=== PATIENT | female | born 1970 | race American Indian/Alaskan Native ===

== ENCOUNTER 2021-04-26 13:08 | Emergency (ER) | payer OTHER ==
[2021-04-26 13:55] VITALS: BP 152/90
--- NOTE | 2021-04-26 14:36 | Emergency Department Report ---
ED General Adult HPI - General Chief complaint: Adult Asthma Stated complaint: SOB Time Seen by Provider: 04/26/21 14:12 Source: patient Mode of arrival: Ambulatory Limitations: No Limitations - History of Present Illness Initial comments: 50 year old female with pmhx of HTN and "chronic bronchitis" (she states she has never been dx with asthma or COPD) presents to ED with complaints of SOB. Patient states that around labor day she started having issues with her allergies and then 2 days later she developed as well as loss of smell and a productive cough. She states that she went and got a COVID-19 test and it was positive. She states that she called her primary care doctor who called her in a prescription for Tessalon Perles for the cough. She states that recently she has been increased shortness of breath mainly when she lays down she is also having increased wheezing and increased chest tightness. She states that she does have a albuterol MDI which she has been using as needed with some relief of her symptoms. She denies any lower extremity swelling. She states that she has never been admitted for her chronic bronchitis. MD Complaint: SOB/+COVID -: Gradual, days(s) Severity scale (0 -10): 0 - Related Data Previous Rx's Medication Instructions Recorded Last Taken Type Azithromycin [Zithromax Z-JENNIFER] 250 mg PO DAILY #1 pack 04/26/21 Unknown Rx predniSONE [Deltasone] 40 mg PO QDAY #10 tab 04/26/21 Unknown Rx Allergies Allergy/AdvReac Type Severity Reaction Status Date / Time No Known Allergies Allergy Unverified 04/26/21 13:51 ED Review of Systems ROS: Stated complaint: SOB Other details as noted in HPI ED Past Medical Hx - Past Medical History Previous Medical History?: Yes Hx Hypertension: Yes Hx Asthma: Yes - Medications Home Medications: Home Medications Medication Instructions Recorded Confirmed Last Taken Type Azithromycin [Zithromax Z-JENNIFER] 250 mg PO DAILY #1 pack 04/26/21 Unknown Rx predniSONE [Deltasone] 40 mg PO QDAY #10 tab 04/26/21 Unknown Rx ED Physical Exam - General Limitations: No Limitations ED Course Vital Signs 04/26/21 04/26/21 13:50 13:54 Temperature 98.4 F 97.8 F Pulse Rate 83 80 Respiratory 16 18 Rate Blood Pressure 152/94 Blood Pressure 152/90 [Left] O2 Sat by Pulse 97 97 Oximetry ED Medical Decision Making - Lab Data Result diagrams: 04/26/21 16:43 04/26/21 16:43 - EKG Data -: EKG Interpreted by [place] EKG shows normal: sinus rhythm Rate: bradycardia (58) - EKG Data Interpretation: normal EKG - Radiology Data Radiology results: report reviewed Transcribed By: KLARISSA Dictated By: Keith Jalloh MD Electronically Authenticated By: Keith Jalloh MD Signed Date/Time: 04/26/211732 Patient: RAMOS TOMPKINS MR#: [id number] : 1970 Acct:[id number] Age/Sex: 50 / F ADM Date: 04/26/21 Loc: ED Attending Dr: Ordering Physician: SAMMIE QUINONES Date of Service: 04/26/21 Procedure(s): XR chest routine 2V Accession Number(s): [id number] cc: SAMMIE QUINONES Fluoro Time In Minutes: CHEST 2 VIEWS INDICATION: SOB/cough/+covid. COMPARISON: None FINDINGS: SUPPORT DEVICES: None. HEART: Within normal limits. LUNGS/PLEURA: Considerable elevation of the right hemidiaphragm with otherwise clear lungs. No pneumothorax. ADDITIONAL FINDINGS: None. IMPRESSION: 1. No acute findings. 2. Right hemidiaphragm is significantly elevated. Signer Name: Truman Crawford MD Signed: 04/26/2021 3:19 PM Workstation Name: [id number] Transcribed By: JW Dictated By: Truman Crawford MD Electronically Authenticated By: Truman Carwford MD Signed Date/Time: 04/26/211518 DD/ 18 TD/TT: DD/ 32 Patient: RAMOS TOMPKINS MR#: [id number] : 1970 Acct:[id number] Age/Sex: 50 / F ADM Date: 04/26/21 Loc: ED Attending Dr: Ordering Physician: SAMMIE QUINONES Date of Service: 04/26/21 Procedure(s): CT angio chest Accession Number(s): [id number] cc: SAMMIE QUINONES CTA CHEST WITH CONTRAST INDICATION / CLINICAL INFORMATION: sob. TECHNIQUE: Axial CT images were obtained through the chest after injection of 100 cc of Omnipaque 350 IV contrast. 3 plane MIP and/or 3D reconstructions were produced. All CT scans at this location are performed using CT dose reduction for ALARA by means of automated exposure control. COMPARISON: None available. FINDINGS: PULMONARY ARTERIES: No pulmonary emboli. THORACIC AORTA: No significant abnormality. HEART: No significant abnormality. CORONARY ARTERY CALCIFICATION: None. MEDIASTINUM / PAMELA: No significant abnormality. PLEURA: No pleural effusion. No pneumothorax. LUNGS: There is mild atelectasis in the right lung base. There are low lung volumes bilaterally ADDITIONAL FINDINGS: There is elevation of the right hemidiaphragm. UPPER ABDOMEN: Changes of prior gastric surgery are noted. There is been prior cholecystectomy. SKELETAL STRUCTURES: No significant osseous abnormality. IMPRESSION: 1. No CT evidence for pulmonary embolism. 2. There is elevation of the right hemidiaphragm. There is atelectasis in the right lung base. Signer Name: Ugo Rahman MD Signed: 04/26/2021 6:33 PM Workstation Name: [id number] Transcribed By: SS Dictated By: Ugo Rahman MD Electronically Authenticated By: Ugo Rahman MD Signed Date/Time: 04/26/211832 DD/ 29 TD/TT: - Medical Decision Making 1904: After taking history and doing physical, patient was ambulated in ED by me and pulse Ox dropped no lower than 93% on RA. She not appear to be in respiratory distress while ambulating nor did she voice any complaints while ambulating. CXR showed nothing acute. D-dimer was added to determine whether patient will need a CTA to rule out PE. D-dimer was elevated at 935 and therefore a CTA was done. CTA showed no acute pulmonary embolus, and atelectasis in the right lung base but otherwise nothing else acute. labs reviewed and all unremarkable including negative trop. EKG showed sinus bradycardia with a heart rate of 58 otherwise no STEMI, or any other acute ischemic changes. Patient currently resting comfortably denies any acute distress. She is not toxic or ill-appearing. She is neurologically intact with normal gait. Her VS have been stable. Discussed all lab results, as well as chest x-ray and CT re sults with patient's. Suspect COVID bronchitis at this time. She does not meet criteria for admission at this time. Discussed suspected diagnosis and treatment plan with patient. She expressed understanding of results, discharge instructions and agreed with plan. Patient was stable at time of discharge. Critical care attestation.: If time is entered above; I have spent that time in minutes in the direct care of this critically ill patient, excluding procedure time. ED Disposition Clinical Impression: Bronchitis due to COVID-19 virus Disposition: HOME / SELF CARE / HOMELESS Is pt being admited?: No Does the pt Need Aspirin: No Condition: Stable Instructions: COVID-19, COVID-19: How to Protect Yourself and Others - CDC, Acute Bronchitis, Adult, Chronic Bronchitis (ED) Additional Instructions: I recommend that you continue using your inhaler every 4-6 hours to help with your shortness of breath. Start the Zithromax and take the Decadron as prescribed. I recommend close follow-up with your PCP. COntinue to quarantine per your job protocol. Return to the ER if your symptoms changes or worsens in any way. Prescriptions: predniSONE [Deltasone] 40 mg PO QDAY #10 tab Azithromycin [Zithromax Z-JENNIFER] 250 mg PO DAILY #1 pack Referrals: PRIMARY CARE, [Primary Care Provider] - 3-5 Days Forms: Work/School Release Form(ED) Time of Disposition: 18:52 Print Language: SYRIAC
--- NOTE | 2021-04-26 15:24 | XRay Report ---
CHEST 2 VIEWS INDICATION: SOB/cough/+covid. COMPARISON: None FINDINGS: SUPPORT DEVICES: None. HEART: Within normal limits. LUNGS/PLEURA: Considerable elevation of the right hemidiaphragm with otherwise clear lungs. No pneum othorax. ADDITIONAL FINDINGS: None. IMPRESSION: 1. No acute findings. 2. Right hemidiaphragm is significantly elevated. Signer Name: Truman Crawford MD Signed: 04/26/2021 3:19 PM Workstation Name: [id number]
[2021-04-26 16:56] LABS: Basophils # (Auto) 0.1 K/mm3 (0.0-0.1); Basophils % (Auto) 1.3 % (0.0-1.8); Eosinophils # (Auto) 0.2 K/mm3 (0.0-0.4); Eosinophils % (Auto) 2.5 % (0.0-4.3); Hematocrit 43.7 % (30.3-42.9); Hemoglobin 14.8 gm/dl (10.1-14.3); Lymphocytes % (Auto) 31.4 % (13.4-35.0); Mean Corpuscular HGB Conc 34 % (30-34); Mean Corpuscular Volume 86 fl (79-97); Monocytes # (Auto) 0.7 K/mm3 (0.0-0.8); Monocytes % (Auto) 10.9 % (0.0-7.3); Platelet Count 465 K/mm3 (140-440); Red Blood Count 5.08 M/mm3 (3.65-5.03); Red Cell Distribution Width 13.7 % (13.2-15.2)
[2021-04-26 17:15] LABS: Alanine Aminotransferase 36 units/L (7-56); Albumin 4.1 g/dL (3.9-5); BUN/Creatinine Ratio 9; Blood Urea Nitrogen 7 mg/dL (7-17); Calcium 9.1 mg/dL (8.4-10.2); Hemolysis Index 7
--- NOTE | 2021-04-26 18:38 | Cat Scan Report ---
CTA CHEST WITH CONTRAST INDICATION / CLINICAL INFORMATION: sob. TECHNIQUE: Axial CT images were obtained through the chest after injection of 100 cc of Omnipaque 350 IV contrast. 3 plane MIP and/or 3D reconstructions were produced. All CT scans at this location are performed using CT dose reduction for ALARA by means of automated exposure control. COMPARISON: None available. FINDINGS: PULMONARY ARTERIES: No pulmonary emboli. THORACIC AORTA: No significant abnormality. HEART: No significant abnormality. CORONARY ARTERY CALCIFICATION: None. MEDIASTINUM / PAMELA: No significant abnormality. PLEURA: No pleural effusion. No pneumothorax. LUNGS: There is mild atelectasis in the right lung base. There are low lung volumes bilaterally ADDITIONAL FINDINGS: There is elevation of the right hemidiaphragm. UPPER ABDOMEN: Changes of prior gastric surgery are noted. There is been prior cholecystectomy. SKELETAL STRUCTURES: No significant osseous abnormality. IMPRESSION: 1. No CT evidence for pulmonary embolism. 2. There is elevation of the right hemidiaphragm. There is atelectasis in the right lung base. Signer Name: Ugo Rahman MD Signed: 04/26/2021 6:33 PM Workstation Name: [id number]
--- NOTE | 2021-04-27 14:50 | Electrocardiograph Report ---
[facility] Test Date: 2021-04-26 Test Time: 18:40:11 Pat Name: RAMOS TOMPKINS Department: Room: Gender: F Rater Associate: MATTHEW : 1970 Requested By: SAMMIE QUINONES Order Number: [id number] Reading MD: Benjamín Duvall Measurements Intervals [place] Rate: 58 P: -9 ID: 140 QRS: 24 QRSD: 75 T: 34 QT: 442 QTc: 435 Interpretive Statements Sinus bradycardia Low voltage, precordial leads No previous ECG available for comparison Electronically Signed On 04-27-2021 14:50:16 EDT by Benjamín Duvall
== END 2021-04-26 19:04 | disposition home or self-care (01) ==
LOC: ED 13:08
DX: U07.1 COVID-19 (principal); J40 Bronchitis, not specified as acute or chronic; I10 Essential (primary) hypertension; J45.909 Unspecified asthma, uncomplicated
CPT/HCPCS: 36415; 71046; 71275; 80053; 84484; 85025; 85379; 93005; 99284; Q9967

== ENCOUNTER 2021-10-20 22:12 | Observation (INO) | payer OTHER ==
[2021-10-21] MEDS ORDERED: SODIUM CHLORIDE 0.9% 1000 ML 1,000 ML IV ONE (00:10)
[2021-10-21] MEDS ORDERED: MORPHINE 4 MG/1 ML INJ IV ONE ×2 (00:10→07:13)
[2021-10-21] MEDS ORDERED: ONDANSETRON 4 MG/2 ML INJ IV ONE (00:10)
[2021-10-21 00:18] LABS: Basophils # (Auto) 0.1 K/mm3 (0.0-0.1); Basophils % (Auto) 0.8 % (0.0-1.8); Eosinophils # (Auto) 0.2 K/mm3 (0.0-0.4); Hematocrit 37.9 % (30.3-42.9); Hemoglobin 12.5 gm/dl (10.1-14.3); Lymphocytes # (Auto) 1.4 K/mm3 (1.2-5.4); Lymphocytes % (Auto) 17.6 % (13.4-35.0); Mean Corpuscular HGB Conc 33 % (30-34); Mean Corpuscular Volume 83 fl (79-97); Monocytes # (Auto) 0.7 K/mm3 (0.0-0.8); Monocytes % (Auto) 8.3 % (0.0-7.3); Platelet Count 449 K/mm3 (140-440); Red Blood Count 4.55 M/mm3 (3.65-5.03); Red Cell Distribution Width 14.1 % (13.2-15.2)
[2021-10-21 01:22] LABS: Alanine Aminotransferase 25 units/L (7-56); Albumin 4.1 g/dL (3.9-5); BUN/Creatinine Ratio 10; Blood Urea Nitrogen 10 mg/dL (7-17); Hemolysis Index 23
--- NOTE | 2021-10-21 02:59 | Cat Scan Report ---
CT ABDOMEN AND PELVIS WITH CONTRAST INDICATION / CLINICAL INFORMATION: pain. TECHNIQUE: Axial CT images were obtained through the abdomen and pelvis after Omnipaque 300, 100 cc I V contrast. All CT scans at this location are performed using CT dose reduction for ALARA by means o f automated exposure control. COMPARISON: CTA chest 04/26/2021. FINDINGS: LOWER CHEST: Scarring right base. Superimposed bibasilar opacity likely representing atelectasis. LIVER: No significant abnormality. GALLBLADDER: Surgically absent. BILE DUCTS: No significant abnormality. PANCREAS: No significant abnormality. SPLEEN: No significant abnormality. ADRENALS: No significant abnormality. RIGHT KIDNEY / URETER: Surgically absent. LEFT KIDNEY / URETER: No significant abnormality. STOMACH / SMALL BOWEL: Previous gastric surgery. No small bowel dilatation. COLON: No significant abnormality. APPENDIX: No significant abnormality. PERITONEUM: Mild free fluid greatest adjacent to the liver. No free air. Fluid collection in the midl ine superior to the uterus measuring 14.6 x 10.3 x 14.9 cm. A soft tissue component may be may be pre sent inferiorly on the left. A second adjacent cystic lesion in the left measures 5.7 cm. LYMPH NODES: No significant adenopathy. VASCULAR STRUCTURES: No significant abnormality. URINARY BLADDER: No significant abnormality. REPRODUCTIVE ORGANS: No significant abnormality. ADDITIONAL FINDINGS: None. SKELETAL SYSTEM: No significant abnormality. IMPRESSION: 1. Complex cystic lesion superior to the uterus with the larger in the midline and the second of the left of midline. A soft tissue component may be present inferiorly. It is possible this represents a complex cystic adnexal lesion. FILTER WASHER consultation is recommended. 2. Free fluid greatest adjacent to the liver. Signer Name: Colt Pérez MD Signed: 10/21/2021 2:55 AM Workstation Name: [id number]
[2021-10-21] MEDS ORDERED: MORPHINE 2 MG/1 ML INJ ONE (03:14)
[2021-10-21] MEDS ORDERED: MORPHINE 2 MG/1 ML INJ IV ONE (03:24)
[2021-10-21 04:29] LABS: Bilirubin,Urine NEG (Negative); Blood,Urine MOD (Negative); Color,Urine Straw (Yellow); Protein,Urine <15 mg/dL mg/dL (Negative); RBC,Urine < 1.0 /HPF (0.0-6.0); Urobilinogen,Urine < 2.0 mg/dL (<2.0)
[2021-10-21 04:32] LABS: WBC,Urine < 1.0 /HPF (0.0-6.0)
[2021-10-21] MEDS ORDERED: ERTAPENEM 1 GM in SODIUM CHLORIDE 0.9% 50 ML IV ONE (05:19)
--- NOTE | 2021-10-21 05:43 | Emergency Department Report ---
ED Abdominal Pain HPI - General Chief Complaint: Abdominal Pain Stated Complaint: SIDE PAIN Time Seen by Provider: 10/21/21 00:04 Source: patient Mode of arrival: Wheelchair Limitations: No Limitations - History of Present Illness Initial Comments: Pt reports sharp left side abd pain onset 9 am. Pt denies hematuria or dysuria. Pt is aaox4, NAD noted -: Gradual, hour(s) Location: periumbilical Radiation: L flank Severity scale (0 -10): 7 Quality: aching Consistency: constant Improves With: nothing Worsens With: nothing - Related Data Previous Rx's Medication Instructions Recorded Last Taken Type Azithromycin [Zithromax Z-JENNIFER] 250 mg PO DAILY #1 pack 04/26/21 Unknown Rx predniSONE [Deltasone] 40 mg PO QDAY #10 tab 04/26/21 Unknown Rx Allergies Allergy/AdvReac Type Severity Reaction Status Date / Time No Known Allergies Allergy Verified 10/21/21 03:20 ED Review of Systems ROS: Stated complaint: SIDE PAIN Other details as noted in HPI Constitutional: denies: chills, fever Eyes: denies: eye pain, eye discharge, vision change ENT: denies: ear pain, throat pain Respiratory: denies: cough, shortness of breath, wheezing Cardiovascular: denies: chest pain, palpitations Endocrine: no symptoms reported Gastrointestinal: denies: abdominal pain, nausea, diarrhea Genitourinary: denies: urgency, dysuria, discharge Musculoskeletal: denies: back pain, joint swelling, arthralgia Skin: denies: rash, lesions Neurological: denies: headache, weakness, paresthesias Psychiatric: denies: anxiety, depression Hematological/Lymphatic: denies: easy bleeding, easy bruising ED Past Medical Hx - Past Medical History Previous Medical History?: Yes Hx Hypertension: Yes Hx CVA: No Hx Heart Attack/AMI: No Hx Asthma: Yes Additional medical history: Ovarian cyst - Surgical History Past Surgical History?: Yes Additional Surgical History: left hip. RT kidney removed. Gallstones removed. Gastric bypass. Oral sx. Left toe tumor removed - Medications Home Medications: Home Medications Medication Instructions Recorded Confirmed Last Taken Type Azithromycin [Zithromax Z-JENNIFER] 250 mg PO DAILY #1 pack 04/26/21 Unknown Rx predniSONE [Deltasone] 40 mg PO QDAY #10 tab 04/26/21 Unknown Rx ED Physical Exam - General Limitations: No Limitations General appearance: alert, in no apparent distress - Head Head exam: Present: atraumatic, normocephalic - Eye Eye exam: Present: normal appearance - ENT ENT exam: Present: mucous membranes moist - Neck Neck exam: Present: normal inspection - Respiratory Respiratory exam: Present: normal lung sounds bilaterally. Absent: respiratory distress - Cardiovascular Cardiovascular Exam: Present: regular rate, normal rhythm. Absent: systolic murmur, diastolic murmur, rubs, gallop - GI/Abdominal GI/Abdominal exam: Present: tenderness, normal bowel sounds - Extremities Exam Extremities exam: Present: normal inspection - Back Exam Back exam: Present: normal inspection - Neurological Exam Neurological exam: Present: alert, oriented X3 - Psychiatric Psychiatric exam: Present: normal affect, normal mood - Skin Skin exam: Present: warm, dry, intact, normal color. Absent: rash ED Course Vital Signs 10/20/21 10/21/21 22:32 03:23 Temperature 98.6 F Pulse Rate 85 90 Respiratory 18 16 Rate Blood Pressure 177/93 Blood Pressure 149/98 [Left] O2 Sat by Pulse 96 95 Oximetry ED Medical Decision Making - Lab Data Result diagrams: 10/20/21 23:41 10/20/21 23:41 - Medical Decision Making work up negative , pain emds given ct scan shwoed complex cystic mass , US showed possible abscess, abx started spoek with dr hammonds will admit her for drainage Critical care attestation.: If time is entered above; I have spent that time in minutes in the direct care of this critically ill patient, excluding procedure time. ED Disposition Clinical Impression: Abdominal pain, Pelvic abscess in female Disposition: 09 ADMITTED INPATIENT Is pt being admited?: Yes Does the pt Need Aspirin: No Condition: Stable Instructions: Abdominal Pain (ED) Referrals: AMBERLY MCBRIDE MD [Primary Care Provider] - 3-5 Days
--- NOTE | 2021-10-21 05:58 | Ultrasound Report ---
ULTRASOUND PELVIS INDICATION: adenexal cyst. TECHNIQUE: Transabdominal. Duplex Color Doppler used: Yes. COMPARISON: CT abdomen and pelvis earlier the same day. FINDINGS: Limited pelvic ultrasound was performed. A complex cystic lesion is again seen measuring 16 .2 x 9.3 x 14.1 cm. There are soft tissue components and echogenic material within the cystic portion . No internal flow is identified. No normal ovary is identified. IMPRESSION: Complex cystic lesion. Adnexal mass is the primary concern. Signer Name: Colt Pérez MD Signed: 10/21/2021 5:54 AM Workstation Name: [id number]
--- NOTE | 2021-10-21 08:44 | Consultation ---
History of Present Illness Consult date: 10/21/21 Requesting physician: CRYSTAL BEAR Reason for consult: pelvic mass History of present illness: Pt is a 50 year old -Citizen Of The [place] female nulligravida who presents with onset of left flank pain on 10/20/21 with worsening despite taking Tylenol at home so the patient presented to the ED. Initially, I was consulted for concern for pelvic abscess and possible drainage procedure. However, upon review of the chart, the patient has been afebrile, has no leukocytosis and has a large complex adnexal mass on imaging studies. Upon interview with the patient, she reports that she is followed by [facility], most recently by Dr Hampton. She notes that she initially began having longer menses lasting 17-18 days in June 2021. She had a pelvic ultrasound where an ovarian cyst was noted. She was referred to an Gynecologic Oncologist Dr Hampton. She reports undergoing multiple imaging studies including an MRI on 10/11/21 with plan for follow up appt on Thursday10/23/21. The patient is tearful during the interview and notes that "this is a lot." Past History Past Medical History: hypertension, other (Bronchitis, Narcolepsy ) Past Surgical History: gastric bypass, other (left hip surgery, tumor removal on left foot, second toe; oral surgery, right kidney removal ) Family/Genetic History: hypertension Social history: no significant social history - Obstetrical History : 0 Medications and Allergies Allergies Allergy/AdvReac Type Severity Reaction Status Date / Time No Known Allergies Allergy Verified 10/21/21 03:20 Home Medications Medication Instructions Recorded Confirmed Last Taken Type Azithromycin [Zithromax Z-JENNIFER] 250 mg PO DAILY #1 pack 04/26/21 Unknown Rx predniSONE [Deltasone] 40 mg PO QDAY #10 tab 04/26/21 Unknown Rx Review of Systems All systems: negative Constitutional: weakness, no fever, no chills - Vital Signs Vital signs: Vital Signs Temp Pulse Resp BP Pulse Ox 98.6 F 85 18 177/93 96 10/20/21 22:32 10/20/21 22:32 10/20/21 22:32 10/20/21 22:32 10/20/21 22:32 Temp Pulse Resp BP Pulse Ox 98.6 F 109 H 16 162/99 100 10/20/21 22:32 10/21/21 06:35 10/21/21 06:35 10/21/21 06:35 10/21/21 06:35 - Physical Exam Breasts: Positive: deferred Abdomen: Positive: soft, tenderness (minimal, under left breast ) Extremities: Positive: normal Results Result Diagrams: 10/20/21 23:41 10/20/21 23:41 Abnormal lab results 10/20/21 10/21/21 Range/Units 23:41 04:02 Plt Count 449 H (140-440) K/mm3 [place] % (Auto) 8.3 H (0.0-7.3) % Seg Neutrophils % 70.3 H (40.0-70.0) % Ur Specific [place] 1.041 H (1.003-1.030) All other labs normal. Assessment and Plan A: Abdominal Pain Complex Adnexal Mass with established care with [facility] with Dr Hampton and Dr Wallace Obesity Hypertension P: Admit for observation for pain control Attempt to contact the patient's primary gynecology team Continue to monitor clinical status
[2021-10-21] MEDS ORDERED: oxyCODONE /ACETAMINOPHEN 5-325MG TAB PO PRN (09:00)
[2021-10-21] MEDS ORDERED: MORPHINE 2 MG/1 ML INJ IV PRN (09:00)
[2021-10-21] MEDS ORDERED: ONDANSETRON 4 MG/2 ML INJ IV PRN (09:00)
[2021-10-21] MEDS ORDERED: NALOXONE 0.4 MG/1 ML INJ IV PRN (09:00)
[2021-10-21] MEDS: ACETAMINOPHEN 325 MG TAB PO PRN ×3 (10:14→22:05)
[2021-10-21] MEDS: METOPROLOL TARTRATE 50 MG TAB PO SCH (11:24)
[2021-10-21] MEDS: amLODIPine 5 MG TAB PO SCH (11:24)
[2021-10-22] MEDS: ACETAMINOPHEN 325 MG TAB PO PRN (03:02)
[2021-10-22] MEDS: MORPHINE 4 MG/1 ML INJ IV PRN ×4 (04:16→18:47)
[2021-10-22] MEDS ORDERED: HYDROcodone/ACETAMINOPHEN 5-325 MG TAB PO PRN (06:35)
--- NOTE | 2021-10-22 09:11 | Progress Note ---
Assessment and Plan A: Abdominal Pain Complex Adnexal Mass with established care with [facility] with Dr Leticia Hampton and Dr Pavithra Zapien (verified by staff at [facility] [phone]) Obesity Hypertension P: Continue IV pain meds PRN Attempt to transfer to [facility] Continue to monitor clinically Subjective - Subjective Date of service: 10/22/21 Principal diagnosis: Abdominal Pain, Complex adnexal mass Interval history: Pt reports abdominal pain overnight that was improved by Morphine 4 mg IV. She declines Percocet as she reports it causes headache for her. She does not report vaginal bleeding at this time. She is aware of the Gynecologic Oncology follow up appt scheduled for tomorrow, but she is quite concerned that her pain will not be controlled. She is aware that this institution does not have a Gynecologic Oncologist on staff, and would like to be transferred to [facility]. Patient reports: appetite normal, pain poorly controlled, ambulating normally Objective - Vital Signs Latest vital signs: Vital Signs Temp Pulse Pulse Resp Resp BP BP 10/22/21 05:26 98.7 F 77 18 135/78 10/22/21 04:46 18 10/22/21 04:16 18 10/22/21 04:02 18 10/22/21 03:02 18 10/22/21 00:05 98.5 F 69 18 137/80 10/21/21 23:05 18 10/21/21 22:05 18 10/21/21 22:00 75 18 18 10/21/21 20:53 18 10/21/21 20:23 18 10/21/21 20:13 98.8 F 65 16 142/83 10/21/21 19:35 98.1 F 68 18 127/79 10/21/21 18:30 114/75 10/21/21 18:20 114/75 10/21/21 18:10 114/75 10/21/21 18:00 114/75 10/21/21 17:57 98.4 F 10/21/21 17:46 131/84 10/21/21 17:30 131/84 10/21/21 17:16 131/84 10/21/21 17:00 131/84 10/21/21 16:46 128/93 10/21/21 16:40 128/93 10/21/21 16:16 128/93 10/21/21 16:00 128/93 10/21/21 15:46 114/57 10/21/21 15:30 114/57 10/21/21 15:16 114/57 10/21/21 15:00 114/57 10/21/21 14:46 115/67 10/21/21 14:30 115/67 10/21/21 14:16 115/67 10/21/21 14:00 115/67 10/21/21 13:46 126/75 10/21/21 13:30 126/75 10/21/21 13:16 126/75 10/21/21 13:00 126/75 10/21/21 12:46 139/83 10/21/21 12:30 141/90 10/21/21 12:16 141/90 10/21/21 12:04 88 10/21/21 12:00 141/90 10/21/21 11:53 141/90 10/21/21 11:30 141/90 10/21/21 11:24 102 H 141/90 10/21/21 11:16 141/90 10/21/21 11:14 16 10/21/21 11:00 141/90 10/21/21 10:46 145/87 10/21/21 10:30 145/87 10/21/21 10:16 145/87 10/21/21 10:00 150/93 10/21/21 09:46 142/88 10/21/21 09:30 152/96 10/21/21 09:16 148/96 10/21/21 09:10 98.2 F 92 H 18 148/96 10/21/21 09:07 Pulse Ox 10/22/21 05:26 96 10/22/21 04:46 10/22/21 04:16 10/22/21 04:02 10/22/21 03:02 10/22/21 00:05 99 10/21/21 23:05 10/21/21 22:05 10/21/21 22:00 98 10/21/21 20:53 10/21/21 20:23 10/21/21 20:13 98 10/21/21 19:35 98 10/21/21 18:30 95 10/21/21 18:20 92 10/21/21 18:10 95 10/21/21 18:00 95 10/21/21 17:57 10/21/21 17:46 94 10/21/21 17:30 94 10/21/21 17:16 95 10/21/21 17:00 95 10/21/21 16:46 97 10/21/21 16:40 95 10/21/21 16:16 94 10/21/21 16:00 98 10/21/21 15:46 96 10/21/21 15:30 93 10/21/21 15:16 97 10/21/21 15:00 95 10/21/21 14:46 93 10/21/21 14:30 95 10/21/21 14:16 95 10/21/21 14:00 94 10/21/21 13:46 96 10/21/21 13:30 96 10/21/21 13:16 94 10/21/21 13:00 95 10/21/21 12:46 93 10/21/21 12:30 95 10/21/21 12:16 97 10/21/21 12:04 10/21/21 12:00 96 10/21/21 11:53 82 L 10/21/21 11:30 96 10/21/21 11:24 10/21/21 11:16 98 10/21/21 11:14 10/21/21 11:00 94 10/21/21 10:46 96 10/21/21 10:30 95 10/21/21 10:16 93 10/21/21 10:00 97 10/21/21 09:46 93 10/21/21 09:30 92 10/21/21 09:16 95 10/21/21 09:10 95 10/21/21 09:07 95 Intake and Output 10/21/21 10/22/21 10/22/21 22:59 06:59 14:59 Intake Total 240 240 Output Total 100 400 Balance 140 -160 Intake: Oral 240 Intake, Free Water 240 Output: Urine 100 400 Void 100 400 Other: Total, Intake Amount 240 Total, Output Amount 100 400 Voiding Method Toilet # Voids Void 1 Weight 113.398 kg - Exam Breasts: Present: deferred Abdomen: Present: soft (obese ), tenderness Extremities: Absent: tenderness
--- NOTE | 2021-10-22 09:13 | Event Note ---
Date: 10/22/21 [facility] contacted at [phone]. Clinical information given. Instructed to await call-back from on-call physician.
[2021-10-22] MEDS: amLODIPine 5 MG TAB PO SCH (10:33)
[2021-10-22] MEDS: METOPROLOL TARTRATE 50 MG TAB PO SCH (10:34)
[2021-10-22] MEDS ORDERED: LACTULOSE 20 GM/30 ML ORAL LIQD PO SCH (14:00)
--- NOTE | 2021-10-22 18:49 | Discharge Summary ---
Providers - Providers Date of Admission: 10/21/21 08:49 Date of discharge: 10/22/21 Attending physician: TANI TOMPKINS Primary care physician: AMBERLY MCBRIDE Hospitalization Reason for admission: other (abdominal pain, adnexal mass) Discharge diagnosis: other (Abdominal Pain, Adnexal Mass ) Hospital course: This patient was admitted from the Emergency Department for abdominal pain with h/o known large complex adnexal mass managed by [facility] with appointment scheduled for Saturday, October 23, 2021. Since admis chay, the patient required multiple doses of IV Morphine to control her pain. She declined discharge today with oral pain medication with outpatient follow up in favor of transfer to [facility]. Her vitals signs have remained stable and she has denies nausea and vomiting. Condition at discharge: Stable Disposition: 02 [facility] - Discharge Diagnoses (1) Abdominal pain Status: Acute Qualifiers: Abdominal location: left lower quadrant Qualified Code(s): R10.32 - Left lower quadrant pain (2) Adnexal mass Status: Acute (3) Obesity Status: Acute Qualifiers: Obesity type: unspecified obesity type Obesity classification: adult class 2 (BMI 35 - 39.9) Body mass index: BMI 38.0-38.9 (4) Hypertension Status: Acute Qualifiers: Hypertension type: unspecified Qualified Code(s): I10 - Essential (primary) hypertension Plan - Provider Discharge Summary Activity: routine Diet: routine Additional instructions: [] Smoking cessation referral if applicable(refer to patient education folder for contact #) [] Refer to [facility] Call your doctor immediately for: * Fever > 100.5 * Heavy vaginal bleeding ( >1 pad per hour) * Severe persistent headache * Shortness of breath * Reddened, hot, painful area to leg or breast * Drainage or odor from incision. * Keep incision clean and dry at all times and follow doctor's instructions regarding bathing/showering - Follow up plan Follow up: AMBERLY MCBRIDE MD [Primary Care Provider] - 3-5 Days
--- NOTE | 2021-10-22 19:00 | History and Physical Report ---
History of Present Illness Date of examination: 10/21/21 Date of admission: 10/21/21 08:49 Chief complaint: abdominal pain History of present illness: Pt is a 50 year old -[place] female nulligravida who presents with onset of left lower quadrant pain on 10/20/21 with worsening despite taking Tylenol at home so the patient presented to the ED. Initially, I was consulted for concern for pelvic abscess and possible drainage procedure. However, upon review of the chart, the patient has been afebrile, has no leukocytosis and has a large complex adnexal mass on imaging studies. Upon interview with the patient, she reports that she is followed by [facility], most recently by Dr Hampton. She notes that she initially began having longer menses lasting 17-18 days in June 2021. She had a pelvic ultrasound where an ovarian cyst was noted. She was referred to an Gynecologic Oncologist Dr Hampton. She reports undergoing multiple imaging studies including an MRI on 10/11/21 with plan for follow up appt on Thursday10/23/21. The patient is tearful during the interview and notes that "this is a lot." Past History Past Medical History: hypertension, other (Bronchitis, Narcolepsy ) Past Surgical History: gastric bypass, other (left hip surgery, tumor removal on left foot, second toe; oral surgery, right kidney removal ) Family/Genetic History: hypertension - Obstetrical History : 0 Medications and Allergies Allergies Allergy/AdvReac Type Severity Reaction Status Date / Time No Known Allergies Allergy Verified 10/21/21 03:20 Home Medications Medication Instructions Recorded Confirmed Last Taken Type No Known Home Medications [No 10/22/21 10/22/21 Unknown History Reported Home Medications] Active Meds: Active Medications Acetaminophen (Acetaminophen 325 Mg Tab) 650 mg PO Q4H PRN PRN Reason: Pain, Mild (1-3) Last Admin: 10/22/21 03:02 Dose: 650 mg Hydrocodone Bitart/Acetaminophen (Hydrocodone/Acetaminophen 5-325 Mg Tab) 2 each PO Q4H PRN PRN Reason: Pain, Moderate (4-6) Amlodipine Besylate (Amlodipine 5 Mg Tab) 5 mg PO QDAY BAMBI Last Admin: 10/22/21 10:33 Dose: 5 mg Lactulose (Lactulose 20 Gm/30 Ml Oral Liqd) 20 gm PO QDAY BAMBI Last Admin: 10/22/21 14:38 Dose: 20 gm Metoprolol Tartrate (Metoprolol Tartrate 50 Mg Tab) 50 mg PO QDAY [facility] Last Admin: 10/22/21 10:34 Dose: 50 mg Morphine Sulfate (Morphine 2 Mg/1 Ml Inj) 2 mg IV Q4H PRN PRN Reason: Pain, Moderate (4-6) Last Admin: 10/21/21 20:23 Dose: 2 mg Morphine Sulfate (Morphine 4 Mg/1 Ml Inj) 4 mg IV Q4H PRN PRN Reason: Pain , Severe (7-10) Last Admin: 10/22/21 18:47 Dose: 4 mg Naloxone HCl (Naloxone 0.4 Mg/1 Ml Inj) 0.1 mg IV Q2MIN PRN PRN Reason: Res Rate </= 8 or 02 SAT < 92% Ondansetron HCl (Ondansetron 4 Mg/2 Ml Inj) 4 mg IV Q8H PRN PRN Reason: Nausea And Vomiting Review of Systems All systems: negative - Vital Signs Vital signs: Vital Signs Temp Pulse Resp BP Pulse Ox 98.6 F 85 18 177/93 96 10/20/21 22:32 10/20/21 22:32 10/20/21 22:32 10/20/21 22:32 10/20/21 22:32 Temp Pulse Resp BP Pulse Ox 98.2 F 87 20 145/85 99 10/22/21 16:00 10/22/21 16:00 10/22/21 18:47 10/22/21 16:00 10/22/21 16:00 - Physical Exam Breasts: Positive: deferred Abdomen: Positive: soft, tenderness (LLQ) Extremities: Negative: tenderness Results Result Diagrams: 10/20/21 23:41 10/20/21 23:41 All other labs normal. Assessment and Plan A: Abdominal Pain Complex Adnexal Mass with established care with [facility] with Dr Leticia Hampton and Dr Pavithra Zapien (verified by staff at [facility] [phone]) Obesity Hypertension P: Continue IV pain meds PRN Attempt to transfer to [facility] Continue to monitor clinically - Patient Problems (1) Abdominal pain Current Visit: Yes Status: Acute Qualifiers: Abdominal location: left lower quadrant Qualified Code(s): R10.32 - Left lower quadrant pain (2) Adnexal mass Current Visit: Yes Status: Acute (3) Obesity Current Visit: Yes Status: Acute Qualifiers: Obesity type: unspecified obesity type Obesity classification: adult class 2 (BMI 35 - 39.9) Body mass index: BMI 38.0-38.9 (4) Hypertension Current Visit: Yes Status: Acute Qualifiers: Hypertension type: unspecified Qualified Code(s): I10 - Essential (primary) hypertension
[2021-10-22 22:21] VITALS: BP 130/80
== END 2021-10-22 23:50 | disposition short-term general hospital (02) ==
LOC: ED 22:12 → OB 10-21 08:49
PROVIDERS: ADMIT Obstetrics & Gynecology; ATTEND Obstetrics & Gynecology
DX: R10.32 Left lower quadrant pain (principal); R19.00 Intra-abdominal and pelvic swelling, mass and lump, unspecified site; R19.09 Other intra-abdominal and pelvic swelling, mass and lump; E66.9 Obesity, unspecified; I10 Essential (primary) hypertension; N73.9 Female pelvic inflammatory disease, unspecified; Z98.84 Bariatric surgery status; Z79.899 Other long term (current) drug therapy; Z98.890 Other specified postprocedural states; Z68.38 Body mass index [BMI] 38.0-38.9, adult
CPT/HCPCS: 36415; 74177; 76857; 80053; 81001; 82150; 83690; 84703; 85025; 96361; 96365; 96375; 96376; 99285; G0378; J1335; J2270; J2405; J7030; Q9967; Q0162